=== PATIENT | female | born 1965 | race Hispanic/Latino ===

== ENCOUNTER 2017-12-29 15:03 | Emergency (ER) | payer OTHER ==
[2017-12-29 15:10] VITALS: BP 143/85
--- NOTE | 2017-12-29 16:10 | Emergency Department Report ---
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 Patient hit her nose on a metal table. Patient had no loss of consciousness there is an abrasion to the bridge of the nose and some tenderness. Patient was sent for x-rays confirm whether she has a fracture or not.
--- NOTE | 2017-12-29 16:14 | XRay Report ---
FINAL REPORT EXAM: XR NASAL BONE 3+V HISTORY: trauma TECHNIQUE: Three views of the nasal were performed. PRIORS: None. FINDINGS: Lucency through the nasal bones likely representing nasomaxillary suture. No definite nasal bone fracture is seen. No soft tissue abnormality. Normal mineralization. IMPRESSION: No evidence of nasal bone fracture.
--- NOTE | 2017-12-29 16:28 | Emergency Department Report ---
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 Patient hit her nose on a metal table. Patient had no loss of consciousness there is an abrasion to the bridge of the nose and some tenderness. Patient was sent for x-rays confirm whether she has a fracture or not. ED General PMH - Social History Smoking Status: Former Smoker Head Injury W/O Lac Exam - Exam General: Vital signs noted. No distress. Alert and acting appropriately. Adult Head Front + Back: 1 - Small abrasion present there is tenderness of this area Head: Yes Pupils are PERRL, No Hemotympanum, No Hematoma/Ecchymosis, No Epistaxis, No Stepoff/Deformity, No Laceration, No Abrasion Chest, Abd, & Ext: Yes Clear Lung Sounds, Yes Regular Heart Rhythm, No Neck Pain , No Chest Injury/Pain, No Heart Murmur, No Abdominal Tenderness, No Back Tenderness, No Extremity Injury Neuroligical (Head Inj W/O Lac: Yes Normal Speech, Yes Normal Gait, No Lethargy , No Disorientation, No Focal Numbness, No Focal Weakness ED Disposition Clinical Impression: Abrasion Nasal contusion Qualifiers: Encounter type: initial encounter Qualified Code(s): S00.33XA - Contusion of nose, initial encounter Disposition: TO HOME OR SELFCARE Is pt being admited?: No Does the pt Need Aspirin: No Condition: Stable Referrals: PRIMARY CARE,MD [Primary Care Provider] - 3-5 Days Review of Systems - Review of Systems Abnormal Findings: pain at nose
== END 2017-12-29 16:32 | disposition home or self-care (01) ==
LOC: ED 15:03
DX: S00.33XA Contusion of nose, initial encounter (principal); Z87.891 Personal history of nicotine dependence; W01.198A Fall on same level from slipping, tripping and stumbling with subsequent striking against other object, initial encounter; Y93.89 Activity, other specified; Y92.89 Other specified places as the place of occurrence of the external cause; Y99.8 Other external cause status
CPT/HCPCS: 70160; 99283